=== PATIENT | female | born 1955 | race Caucasian/White ===

== ENCOUNTER 2023-08-28 17:38 | Inpatient (IN) | payer OTHER, MEDICAID ==
[~2023-08-28] VITALS: Ht 162.6 cm; Wt 81.2 kg
[~2023-08-28 17:38] MED LIST: ATOR20TA65 PO; BACL20TA PO; GABA-529 PO; NIFE30TA8 PO; OMEP20CA14 PO; TRAM50TA3 PO
[2023-08-28 20:08] LABS: BASOPHILS % 0.2 % (0.0-2.0); EOSINOPHILS % 1.1 % (0.0-5.0); HEMATOCRIT. 33.9 % (36.0-48.0); HEMOGLOBIN. 11.5 g/dL (12.0-16.0); LYMPHOCYTES % 35.4 % (20.0-50.0); MEAN CORPUSCULAR HEMOGLOBIN 31.7 pg (28.0-32.0); MEAN CORPUSCULAR HGB CONC 34.1 g/dL (31.0-37.0); MEAN PLATELET VOLUME 9.5 fl (7.4-10.4); MONOCYTES % 6.7 % (2.0-8.0); NEUTROPHILS % 56.6 % (40.0-76.0); PLATELET 379 x1000/uL (130-400); RED BLOOD CELL COUNT 3.64 mill/uL (4.2-5.4); WHITE BLOOD COUNT 13.7 x1000/uL (4.5-11.0)
[2023-08-28 20:18] LABS: ALANINE AMINOTRANSFERASE 11 IU/L (10-49); ALBUMIN 3.6 g/dL (3.2-4.8); ASPARTATE AMINOTRANSFERASE 17 IU/L (<34); BILIRUBIN TOTAL 0.5 mg/dL (0.1-1.0); CALCIUM 8.3 mg/dL (8.7-10.4); CARBON DIOXIDE 22 mEq/L (21-32); CHLORIDE 108 mEq/L (98-107); CREATININE 0.4 mg/dL (0.6-1.0); GLUCOSE 107 mg/dL (70-105); PROTEIN TOTAL 6.7 g/dL (6.0-8.3); SODIUM 139 mEq/L (136-145); TROPONIN I HIGH SENSITIVITY 6 ng/L (3.0-34); UREA NITROGEN BLOOD 9 mg/dL (9-23)
[2023-08-28] MEDS: CLOPIDOGREL 75MG TABLET PO ONE (22:53)
[2023-08-28] MEDS: ACETAMINOPHEN 325MG TABLET PO ONE (22:54)
[2023-08-28] MEDS: CLOPIDOGREL 75MG TABLET PO NR (22:57)
[2023-08-28] MEDS: ACETAMINOPHEN 325MG TABLET PO NR (22:57)
[2023-08-29] VITALS (9 sets, daily range): BP systolic 107–144; BP diastolic 63–72; PULSE 65–131; RESP 16–24; TEMP 97.3–97.9; O2SAT 97–98
[2023-08-29] MEDS ORDERED: TRAMADOL 50MG TABLET PO PRN (02:00)
[2023-08-29 03:59] LABS: TROPONIN I HIGH SENSITIVITY 8 ng/L (3.0-34)
[2023-08-29] MEDS: ALPRAZOLAM 0.25 MG TABLET PO SCH (04:34)
[2023-08-29] MEDS: PANTOPRAZOLE 40MG DR TABLET PO SCH (06:48)
[2023-08-29] MEDS: IPRATROPIUM/ALBUTEROL 0.5-3(2.5)MG/3ML NEB HHN SCH (08:00)
[2023-08-29] MEDS: NIFEDIPINE XL 60MG TAB PO SCH (08:19)
[2023-08-29] MEDS: ENOXAPARIN 30MG/0.3ML SYR SUBCUT SCH (08:20)
[2023-08-29] MEDS ORDERED: FOLIC ACID 1MG TABLET PO SCH (09:00)
[2023-08-29] MEDS ORDERED: ASPIRIN 81MG TABLET PO SCH (09:00)
[2023-08-29] MEDS ORDERED: ISOSORBIDE MONONITRATE 30MG TABLET SR 24HR PO SCH (09:00)
[2023-08-29] MEDS ORDERED: CARVEDILOL 12.5MG TABLET PO SCH (09:00)
[2023-08-29] MEDS ORDERED: ONDANSETRON HCL 4MG/2ML INJ IV PRN (10:45)
[2023-08-29] MEDS ORDERED: CLONIDINE 0.1MG TABLET PO PRN (10:45)
[2023-08-29] MEDS ORDERED: DOCUSATE SODIUM 100MG CAPSULE PO PRN (10:45)
[2023-08-29] MEDS: POTASSIUM CHLORIDE 20MEQ TABLET SR PO NR (11:50)
[2023-08-29] MEDS: ACETAMINOPHEN 325MG TABLET PO PRN (12:16)
[2023-08-29 12:35] LABS: TROPONIN I HIGH SENSITIVITY 8 ng/L (3.0-34)
[2023-08-29 13:24] LABS: BG BASE EXCESS -0.5 mmol/L (-2.0-2.0); BG CARBOXYHEMOGLOBIN 0.3 % (0.5-1.5); BG DEOXYHEMOGLOBIN 2.6 % (0.0-5.0); BG FRACTION INSPIRED OXYGEN 21; BG HCO3 ACT 20.7 mmol/L (22.0-26.0); BG METHEMOGLOBIN 0.3 % (0.0-1.5); BG OXYGEN SATURATION 97.4 % (92.0-98.5); BG OXYHEMOGLOBIN 96.8 % (94.0-97.0); BG PH 7.535 (7.350-7.450); BG PO2 93.2 mmHg (75.0-100.0); BG SAMPLE SITE RIGHT RADIAL; BG TOTAL HEMOGLOBIN 12.7 g/dL (12.0-18.0); BG VENT MODE ROOM AIR
[2023-08-29 13:25] LABS: BASOPHILS % 0.4 % (0.0-2.0); EOSINOPHILS % 1.7 % (0.0-5.0); HEMATOCRIT. 37.6 % (36.0-48.0); HEMOGLOBIN. 12.4 g/dL (12.0-16.0); LYMPHOCYTES % 42.8 % (20.0-50.0); MEAN CORPUSCULAR HEMOGLOBIN 30.8 pg (28.0-32.0); MEAN CORPUSCULAR HGB CONC 33.1 g/dL (31.0-37.0); MEAN PLATELET VOLUME 9.9 fl (7.4-10.4); MONOCYTES % 6.7 % (2.0-8.0); NEUTROPHILS % 48.4 % (40.0-76.0); PLATELET 381 x1000/uL (130-400); RED BLOOD CELL COUNT 4.04 mill/uL (4.2-5.4); RED CELL DISTRIBUTION WIDTH 14.8 % (11.6-14.6); WHITE BLOOD COUNT 12.7 x1000/uL (4.5-11.0)
[2023-08-29] MEDS: FUROSEMIDE 40MG/4ML VIAL IVP SCH (13:45)
[2023-08-29] MEDS: NITROGLYCERIN OINT 1GM/INCH UDPKT TD SCH (13:47)
[2023-08-29 14:04] LABS: ALANINE AMINOTRANSFERASE 9 IU/L (10-49); ALBUMIN 3.9 g/dL (3.2-4.8); ASPARTATE AMINOTRANSFERASE 16 IU/L (<34); BILIRUBIN TOTAL 0.7 mg/dL (0.1-1.0); CALCIUM 8.8 mg/dL (8.7-10.4); CARBON DIOXIDE 20 mEq/L (21-32); CHLORIDE 107 mEq/L (98-107); CREATININE 0.4 mg/dL (0.6-1.0); GLUCOSE 112 mg/dL (70-105); IRON 43 ug/dL (50-170); POTASSIUM 3.1 mEq/L (3.5-5.1); PROTEIN TOTAL 7.3 g/dL (6.0-8.3); SODIUM 137 mEq/L (136-145); TOTAL IRON BINDING CAPACITY 211 ug/dl (250-425); UREA NITROGEN BLOOD 8 mg/dL (9-23)
[2023-08-29 14:25] LABS: D-DIMER 5.56 mg/L FEU (<0.50); PROTHROMBIN TIME 11.2 sec (9.6-11.0)
[2023-08-29 14:38] LABS: FERRITIN 191 ng/mL (10-291); FOLIC ACID (FOLATE) SERUM 9.81 ng/mL (>5.38)
[2023-08-29 14:45] LABS: VITAMIN B12 SERUM > 2000 pg/mL (211-911)
[2023-08-29] MEDS: ENOXAPARIN 60MG/0.6ML SYR SUBCUT SCH (15:13)
[2023-08-29] MEDS: DILTIAZEM HCL 30MG TABLET PO NR (16:53)
[2023-08-29] MEDS ORDERED: LORAZEPAM 0.5MG TABLET PO PRN (17:00)
[2023-08-29] MEDS: GABAPENTIN 100MG CAPSULE PO SCH (17:25)
[2023-08-29] MEDS ORDERED: DILTIAZEM HCL 30MG TABLET PO SCH (18:00)
[2023-08-29] MEDS: IPRATROPIUM/ALBUTEROL 0.5-3(2.5)MG/3ML NEB HHN PRN (18:18)
[2023-08-29 18:37] LABS: CREATINE KINASE MB FRACTION 0.7 ng/mL (0.5-3.6)
[2023-08-29] MEDS: ALPRAZOLAM 0.5 MG TABLET PO SCH (18:55)
[2023-08-29] MEDS ORDERED: ALPRAZOLAM 0.5 MG TABLET PO SCH (21:00)
[2023-08-29 21:44] LABS: PROTHROMBIN TIME 11.4 sec (9.6-11.0)
[2023-08-29] MEDS: ATORVASTATIN CALCIUM 20MG TABLET PO SCH (22:29)
[2023-08-29] MEDS: BACLOFEN 10MG TABLET PO SCH (22:29)
[2023-08-30] VITALS (9 sets, daily range): BP systolic 91–155; BP diastolic 43–80; PULSE 57–111; RESP 14–21; TEMP 96–97.9; O2SAT 97
[2023-08-30] MEDS: DILTIAZEM HCL 30MG TABLET PO SCH
[2023-08-30 01:09] LABS: CREATINE KINASE MB FRACTION 0.9 ng/mL (0.5-3.6)
[2023-08-30] MEDS: ENOXAPARIN 100MG/ML SYR SUBCUT SCH (05:59)
[2023-08-30 07:42] LABS: TROPONIN I HIGH SENSITIVITY 19 ng/L (3.0-34)
[2023-08-30 07:50] LABS: CALCIUM 8.4 mg/dL (8.7-10.4); CARBON DIOXIDE 21 mEq/L (21-32); CHLORIDE 109 mEq/L (98-107); CHOLESTEROL 130 mg/dL (<200); CREATININE 0.4 mg/dL (0.6-1.0); GLUCOSE 108 mg/dL (70-105); HDL CHOLESTEROL 44 mg/dL (>65); LDL CHOLESTEROL 61 mg/dL (5-100); POTASSIUM 3.4 mEq/L (3.5-5.1); SODIUM 139 mEq/L (136-145); TRIGLYCERIDE 126 mg/dL (0-150); UREA NITROGEN BLOOD 8 mg/dL (9-23)
[2023-08-30 07:59] LABS: BASOPHILS % 0.4 % (0.0-2.0); EOSINOPHILS % 2.3 % (0.0-5.0); HEMATOCRIT. 35.4 % (36.0-48.0); LYMPHOCYTES % 38.3 % (20.0-50.0); MEAN CORPUSCULAR HEMOGLOBIN 31.4 pg (28.0-32.0); MEAN CORPUSCULAR HGB CONC 33.8 g/dL (31.0-37.0); MEAN PLATELET VOLUME 10.3 fl (7.4-10.4); MONOCYTES % 9.7 % (2.0-8.0); NEUTROPHILS % 49.3 % (40.0-76.0); PLATELET 349 x1000/uL (130-400); RED BLOOD CELL COUNT 3.81 mill/uL (4.2-5.4); RED CELL DISTRIBUTION WIDTH 15.6 % (11.6-14.6); WHITE BLOOD COUNT 11.2 x1000/uL (4.5-11.0)
[2023-08-30] MEDS: ALPRAZOLAM 0.5 MG TABLET PO SCH (09:11)
[2023-08-30] MEDS: MAGNESIUM 2 G PREMIX 50 ML IV SCH (14:53)
[2023-08-30] MEDS: POTASSIUM CHLORIDE 20MEQ TABLET SR PO NR (14:56)
[2023-08-30] MEDS: FAMOTIDINE 20MG TABLET PO SCH (21:00)
[2023-08-31] VITALS (8 sets, daily range): BP systolic 98–137; BP diastolic 60–90; PULSE 79–122; RESP 16–21; TEMP 96.3–97.5
[2023-08-31 05:50] LABS: CALCIUM 8.6 mg/dL (8.7-10.4); CARBON DIOXIDE 22 mEq/L (21-32); CHLORIDE 104 mEq/L (98-107); CREATININE 0.6 mg/dL (0.6-1.0); GLUCOSE 136 mg/dL (70-105); POTASSIUM 3.4 mEq/L (3.5-5.1); SODIUM 136 mEq/L (136-145); UREA NITROGEN BLOOD 11 mg/dL (9-23)
[2023-08-31 06:32] LABS: BASOPHILS % 0.4 % (0.0-2.0); EOSINOPHILS % 1.5 % (0.0-5.0); HEMOGLOBIN. 12.9 g/dL (12.0-16.0); LYMPHOCYTES % 34.9 % (20.0-50.0); MEAN CORPUSCULAR HEMOGLOBIN 31.5 pg (28.0-32.0); MEAN CORPUSCULAR VOLUME 92.7 fL (81.0-99.0); MEAN PLATELET VOLUME 10.7 fl (7.4-10.4); MONOCYTES % 8.4 % (2.0-8.0); NEUTROPHILS % 54.8 % (40.0-76.0); PLATELET 360 x1000/uL (130-400); RED CELL DISTRIBUTION WIDTH 15.7 % (11.6-14.6); WHITE BLOOD COUNT 13.7 x1000/uL (4.5-11.0)
[2023-08-31] MEDS: POTASSIUM CHLORIDE 20MEQ TABLET SR PO NR (09:43)
[2023-08-31] MEDS ORDERED: DILT240C91 MT (12:19)
[2023-08-31] MEDS ORDERED: APIX5TAB MT (12:19)
[2023-08-31] MEDS: DILTIAZEM HCL 60MG TABLET PO SCH (12:41)
== END 2023-08-31 18:22 | disposition home or self-care (01) | DRG 293 ==
LOC: ER 17:38 → 8WST 22:17
PROVIDERS: ADMIT Internal Medicine; ATTEND Internal Medicine
DX: I11.0 Hypertensive heart disease with heart failure (principal); E78.5 Hyperlipidemia, unspecified; R06.03 Acute respiratory distress; E87.6 Hypokalemia; I50.9 Heart failure, unspecified; Z68.30 Body mass index [BMI] 30.0-30.9, adult; E78.00 Pure hypercholesterolemia, unspecified; D64.9 Anemia, unspecified; Z20.822 Contact with and (suspected) exposure to COVID-19; D72.829 Elevated white blood cell count, unspecified; E66.9 Obesity, unspecified; T50.2X6A Underdosing of carbonic-anhydrase inhibitors, benzothiadiazides and other diuretics, initial encounter; X58.XXXA Exposure to other specified factors, initial encounter; I48.0 Paroxysmal atrial fibrillation; J45.909 Unspecified asthma, uncomplicated; Z91.148 Patient's other noncompliance with medication regimen for other reason; Z88.6 Allergy status to analgesic agent
CPT/HCPCS: 36415; 36600; 71045; 78580; 80048; 80053; 80061; 82375; 82550; 82553; 82607; 82728; 82746; 82805; 83540; 83550; 83735; 83880; 84145; 84484; 85025; 85379; 87426; 93005; 93306; 93970; 94640; 97162; 99285; J1650; J1940; J3475